=== PATIENT | female | born 1955 | race Caucasian/White ===

== ENCOUNTER 2025-08-09 01:28 | Observation (INO) ==
[2025-08-09 02:53] LABS: Hematocrit (blood only) 44.9 % (37.0-47.0); Hemoglobin 14.8 g/dl (12.0-16.0); Immature Granulocytes # (auto) 0.02 K/uL (0.01-0.20); Immature Granulocytes % (auto) 0.2 %; Mean Corpuscular Hemoglobin 30.5 pg (25.0-34.0); Mean Corpuscular Volume 92.6 fL (80.0-100.0); Platelet Count 220 K/uL (130-400); RDW Standard Deviation 43.0 fL (36.4-46.3); Red Blood Count 4.85 M/uL (4.20-5.40); White Blood Count 9.80 K/ul (4.8-10.8)
[2025-08-09 03:16] LABS: Alanine Aminotransferase 14.0 U/L (7-52); Albumin Globulin Ratio 1.2 (0.9-2); Albumin Level 4.1 gm/dl (3.4-5.0); Alkaline Phosphatase 102.0 U/L (34-104); Anion Gap 9.0 (3-11); Bilirubin,Total 0.4 mg/dl (0.2-1.0); Blood Urea Nitrogen 23.0 mg/dl (6-23); Calcium 9.1 mg/dl (8.6-10.3); Carbon Dioxide 27.0 mmol/L (21-32); Chloride 107.0 mmol/L (98-107); Creatinine Clr Calc Pharmacy 79.2 ml/min; Globulin 3.3 gm/dl (2.5-4.0); Glucose 124.0 mg/dl (70-99(Fasting)); Magnesium 2.1 mg/dl (1.7-2.4); Potassium 3.4 mmol/L (3.5-5.1); Sodium 143.0 mmol/L (136-145); Total Protein 7.4 gm/dl (6.0-8.3)
--- NOTE | 2025-08-09 03:27 | XRay Report ---
EXAM: XR chest 1V portable CLINICAL HISTORY: Dysrhythmia. TECHNIQUE: X-ray images of the chest were obtained in AP projection. COMPARISON: No prior studies are available for comparison. FINDINGS: Pulmonary Parenchyma: The lungs are clear bilaterally. There is no evidence of consolidation, collapse, or focal opacities. No pulmonary nodules are identified. There is no evidence of pleural effusion or pleural thickening. Heart and Mediastinum: The heart size and shape are normal. A prominent aortic knuckle is noted. There is no mediastinal widening or masses. No hilar or mediastinal lymphadenopathy is present. Bony Thorax: The bony thorax appears intact without fractures or deformities. Soft Tissues: The soft tissues overlying the chest wall are unremarkable. IMPRESSION: No acute cardiopulmonary abnormalities are identified. Electronically signed by Pravin Galan 08-09-2025 03:26 AM
[2025-08-09 03:31] LABS: Thyroid Stimulating Hormone 8.021 uIu/ml (0.300-4.500)
[2025-08-09 04:05] LABS: T4 Free Thyroxine 0.84 ng/dl (0.61-1.60)
--- NOTE | 2025-08-09 04:55 | History & Physical Report ---
Date of Service August 09, 2025 Assessment & Plan (1) Atrial fibrillation with rapid ventricular response: Plan: Assessment and plan below following discussion of case with ED provider and reviewing patient history/pertinent normal/abnormal diagnostic test results. New onset atrial fibrillation hx PVCs/bigeminy as per patient Likely from uncontrolled hypertension from joint pain, NSAID Rx contributory Hypokalemia contributory Anxiety contributory Hyperglycemia rule out DM Subclinical hypothyroidism Admit to PCU Initiate beta-all for rate control IV heparin for thromboembolic prophylaxis Replace potassium Anxiolytic as needed Patient counseled regarding adverse effects of NSAIDs on blood pressure. TTE, Cardiology consult re: new onset A-fib Check hemoglobin A1c Recheck TSH next month DVT prophylaxis. IV heparin Full code Text document was generated using [employer] voice recognition software. It may contain grammatical or spelling errors. Kindly contact undersigned for clarification of any documentation item in question. History of Present Illness Chief Complaint: Palpitations Primary Care Provider: Barbara Ford DO History obtained from patient, family, and records. Medical history significant for PVCs/bigeminy as per patient, osteoarthritis, mood disorder. Patient has had intermittent palpitations almost occurring daily even at rest for about 10 years now. Was on metoprolol in the past for history of PVCs/bigeminy. Palpitations short-lived and not bothersome as per patient. Patient discontinued metoprolol years ago secondary to low blood pressure. Patient mentioned palpitations to PCP and outpatient visit last month. Outpatient EKG showed first-degree AV block as per note. Outpatient TTE contemplated. Few months history of worsening left hip and left knee pain. History effusion on outpatient imaging. Patient seen at [facility] 4 days ago. Patient experienced bothersome palpitations after she woke up around 1 AM to go to the bathroom. No chest pain, no cough, no SOB. No headache symptoms. Admits to some family stressors as well as NSAID intake for bothersome left hip and left knee pain. No fever, no chills. Patient noted to be in rapid A-fib upon arrival at the ER. SBP 160s, heart rate 150s. 2 doses of IV Cardizem administered at the ER. Medical History as above Surgical History : Hysterectomy, oophorectomy for right dermoid cyst, hernia repair, dental surgery Family History : Lung cancer, breast cancer, colon cancer, DM, stroke Personal/Social history : Non-smoker, occasional EtOH intake, retired [employer] Allergies Allergy/AdvReac Type Severity Reaction Status Date / Time ephedrine AdvReac Mild . Verified 01/19/10 11:05 No Known Allergies Verified 01/19/10 11:05 Home Medications Medication Instructions Recorded Confirmed Type Miralax 17 g PO DAILY 08/09/25 08/09/25 History ibuprofen 200 mg tablet (Advil) 200 mg PO Q4 PRN Pain 08/09/25 08/09/25 History ketoconazole 2 % topical cream 1 applic topical BID PRN Rash 08/09/25 08/09/25 History Past Med/Surg History Problem List (Updated 08/09/25 @ 09:04 by Lee Tate MD) Atrial fibrillation with rapid ventricular response Social History Smoking Status: Never smoker Second Hand Exposure: No; Do You Dip or Chew Tobacco: No; Tobacco Cessation Education Requested by Patient: No Hx Alcohol Use: Yes Alcohol type: wine Hx Substance Use: No Preferred Language: Mohawk Communication Ability: Effective Pharmacovigilance Specialist Required: No Beliefs That Will Affect Care: None Current Living Situation Comment: life partner Other Information That Helps Us Care for You: No Feels Safe at Home: Yes Safety Concerns: Feels Safe At This Time Assistive Devices: Denture - Upper and Glasses Assistive Devices Comment: partial upper Review of Systems Review of Systems: As per HPI, all other systems reviewed and negative Physical Exam Physical Exam: GENERAL: Comfortable, pleasant, slightly anxious, looks younger than stated age, no respiratory distress SKIN: Normal color, warm HEENT: Bespectacled, pink palpebral conjunctivae, no ptosis, moist buccal mucosa NECK : Supple, no tenderness CHEST : CTA, no tenderness HEART : Irregular, no obvious murmurs ABDOMEN: Some distention, nontender EXTREMITIES : No LE swelling, left hip and left knee tenderness, palpable pulses, no other conspicuous deformities noted NEUROLOGIC : Coherent, no facial asymmetry, no other gross focality Results & Data Results & Data Vital Signs (Past 12 Hours) Vital Signs Temp Pulse Resp BP Pulse Ox O2 Del Method 08/09/25 04:30 105 H 22 121/75 96 08/09/25 04:00 108 H 18 114/83 96 08/09/25 03:32 112 H 20 145/79 H 97 Room Air 08/09/25 03:00 116 H 20 132/79 95 08/09/25 02:30 94 H 24 141/88 H 95 08/09/25 02:16 112 H 24 141/68 H 96 08/09/25 02:16 105 H 08/09/25 01:50 125 H 20 169/91 H 97 08/09/25 01:37 157 H 08/09/25 01:31 36.7 C 160 H 22 144/87 H 98 Room Air Laboratory Results Laboratory Results WBC 9.80 K/ul (4.8-10.8) 08/09/25 01:40 RBC 4.85 M/uL (4.20-5.40) 08/09/25 01:40 Hgb 14.8 g/dl (12.0-16.0) 08/09/25 01:40 Hct 44.9 % (37.0-47.0) 08/09/25 01:40 MCV 92.6 fL (80.0-100.0) 08/09/25 01:40 MCH 30.5 pg (25.0-34.0) 08/09/25 01:40 MCHC 33.0 g/dL (32.0-36.0) 08/09/25 01:40 RDW Std Deviation 43.0 fL (36.4-46.3) 08/09/25 01:40 RDW Coeff of Jose Carlos 12.7 % (11.5-14.5) 08/09/25 01:40 Plt Count 220 K/uL (130-400) 08/09/25 01:40 MPV 10.1 fL (9.4-12.4) 08/09/25 01:40 Immature Gran % (Auto) 0.2 % 08/09/25 01:40 Neut % (Auto) 44.1 % 08/09/25 01:40 Lymph % (Auto) 44.1 % 08/09/25 01:40 Bartholomew % (Auto) 8.7 % 08/09/25 01:40 Eos % (Auto) 2.4 % 08/09/25 01:40 Baso % (Auto) 0.5 % 08/09/25 01:40 Neut # (Auto) 4.32 K/uL (1.40-6.50) 08/09/25 01:40 Lymph # (Auto) 4.32 K/uL (1.20-3.40) H 08/09/25 01:40 Bartholomew # (Auto) 0.85 K/uL (0.11-0.59) H 08/09/25 01:40 Eos # (Auto) 0.24 K/uL (0.00-0.50) 08/09/25 01:40 Baso # (Auto) 0.05 K/uL (0.00-0.20) 08/09/25 01:40 Immature Gran # (Auto) 0.02 K/uL (0.01-0.20) 08/09/25 01:40 Sodium 143 mmol/L (136-145) 08/09/25 01:40 Potassium 3.4 mmol/L (3.5-5.1) L 08/09/25 01:40 Chloride 107 mmol/L (98-107) 08/09/25 01:40 Carbon Dioxide 27 mmol/L (21-32) 08/09/25 01:40 Anion Gap 9 (3-11) 08/09/25 01:40 BUN 23 mg/dl (6-23) 08/09/25 01:40 Creatinine 0.73 mg/dl (0.6-1.2) 08/09/25 01:40 Est Cr Clr Drug Dosing 79.2 ml/min 08/09/25 01:40 eGFR 89.52 08/09/25 01:40 BUN/Creatinine Ratio 31.5 (10-20) H 08/09/25 01:40 Glucose 124 mg/dl (70-99(Fasting)) H 08/09/25 01:40 Calcium 9.1 mg/dl (8.6-10.3) 08/09/25 01:40 Magnesium 2.1 mg/dl (1.7-2.4) 08/09/25 01:40 Total Bilirubin 0.4 mg/dl (0.2-1.0) 08/09/25 01:40 AST 21 U/L (13-39) 08/09/25 01:40 ALT 14 U/L (7-52) 08/09/25 01:40 Alkaline Phosphatase 102 U/L (34-104) 08/09/25 01:40 Troponin I High Sens 6.0 pg/ml (0-14) 08/09/25 01:40 Total Protein 7.4 gm/dl (6.0-8.3) 08/09/25 01:40 Albumin 4.1 gm/dl (3.4-5.0) 08/09/25 01:40 Globulin 3.3 gm/dl (2.5-4.0) 08/09/25 01:40 Albumin/Globulin Ratio 1.2 (0.9-2) 08/09/25 01:40 TSH 8.021 uIu/ml (0.300-4.500) H 08/09/25 01:40 Free T4 0.84 ng/dl (0.61-1.60) 08/09/25 01:40 Impressions Chest X-Ray 08/09/25 02:10 EXAM: XR chest 1V portable CLINICAL HISTORY: Dysrhythmia. TECHNIQUE: X-ray images of the chest were obtained in AP projection. COMPARISON: No prior studies are available for comparison. FINDINGS: Pulmonary Parenchyma: The lungs are clear bilaterally. There is no evidence of consolidation, collapse, or focal opacities. No pulmonary nodules are identified. There is no evidence of pleural effusion or pleural thickening. Heart and Mediastinum: The heart size and shape are normal. A prominent aortic knuckle is noted. There is no mediastinal widening or masses. No hilar or mediastinal lymphadenopathy is present. Bony Thorax: The bony thorax appears intact without fractures or deformities. Soft Tissues: The soft tissues overlying the chest wall are unremarkable. IMPRESSION: No acute cardiopulmonary abnormalities are identified. Electronically signed by Pravin Galan 08-09-2025 03:26 AM Diagnostic Findings EKG as per my interpretation :Rate 150, A-fib, LAD, LAFB, no ischemia
[2025-08-09] MEDS: POTASSIUM CHLORIDE CRTAB 20 MEQ TABCR PO STA (05:05)
[2025-08-09] MEDS: METOPROLOL TARTRATE 25 MG TAB PO STA (05:06)
[2025-08-09 05:13] LABS: Partial Thromboplastin Time 28 Seconds (21-31)
[2025-08-09] MEDS: POTASSIUM CHLORIDE 20 MEQ in LACTATED RINGER'S 1,000 ML IV STA (05:34)
[2025-08-09] MEDS ORDERED: LORazepam 0.5 MG TAB PO PRN (05:53)
[2025-08-09] MEDS ORDERED: ACETAMINOPHEN 500 MG TAB PO PRN (05:53)
[2025-08-09] MEDS ORDERED: PROMETHAZINE 6.25 MG/50.25 ML BAG IV PRN (05:53)
[2025-08-09] MEDS: METOPROLOL TARTRATE 1 MG/ML VIAL IV STA (05:56)
--- NOTE | 2025-08-09 06:13 | Emergency Department Note ---
Impression & Plan Atrial fibrillation with rapid ventricular response Admit to the [facility] ED Provider Note NAME: SEAMUS BRANTLEY AGE: 70 SEX: Female INFORMANT: Patient ED PROVIDER(S): Fiona Raines DO CHIEF COMPLAINT: tachycardia PLAN: Disposition: admit to the [facility] MEDICAL DECISION MAKING: this is a 70-year-old female patient who presents to the emergency department after waking to go to the bathroom. She noted that her heart rate was fast. She denies any chest pain or shortness of breath but states that the tachycardia seems to make her feel tired. Patient has a history of previous PVCs and bigeminy but no previous history of A-fib. Laboratory studies reveal no leukocytosis or anemia. Potassium was slightly low at 3.4. Glucose was 124. Troponin was normal. Free T4 was normal. Patient had a portable chest x-ray which was unremarkable. She received 2 separate doses of IV Cardizem which slowed her rate slightly but she remained in atrial fibrillation and quickly returns to a rapid ventricular response. I discussed the case with the [facility] and they will evaluate for further inpatient care. Care/management discussed with: family services manager and [facility] Triage Nursing notes: reviewed and agree With them. Vital Signs: reviewed and remarkable for tachycardia Additional History obtained from: patient's Differential Diagnosis: cardiac dysrhythmia, electrolyte abnormality, cardiac ischemia, thyroid dysfunction Diagnostics, independently interpreted by me: ECG: Atrial fibrillation with rapid ventricular response at a rate of 155 Cardiac Monitoring: A-fib with RVR at a rate of 140 Imaging studies: portable chest x-ray: No significant cardiomegaly or evidence of congestive heart failure as per my independent interpretation HPI: 70 year old Female arrives for evaluation of tachycardia. resents to the emergency department after waking to go to the bathroom. She noted that her heart rate was fast. She denies any chest pain or shortness of breath but states that the tachycardia seems to make her feel tired. Patient has a history of previous PVCs and bigeminy but no previous history of A-fib. PAST MEDICAL HISTORY: migraines, SOCIAL HISTORY: patient was in her , she does not smoke HOME MEDICATIONS: See list ALLERGIES: see list VITALS: See Below PHYSICAL EXAMINATION: HEENT: Head - normocephalic and atraumatic. Pupils are equal, round, and reactive to light. Extraocular eye muscles are intact, and sclera are anicteric. Nose - moist nasal mucosa without discharge. Mouth - moist buccal mucosa. Oropharynx is nonerythematous and there is no tonsillar exudate or edema noted. Neck: Supple; no JVD, nuchal rigidity, cervical lymphadenopathy, or auscultated bruits. Heart: Tachycardic rate with an irregularly irregular rhythm. There is a normal S1 and S2 with no murmurs, clicks, or gallops appreciated. Lungs: Clear to auscultation bilaterally with no wheezes, rales, or rhonchi. Abdomen: Soft, completely nontender, nondistended, with good bowel sounds. There are no palpable pulsatile masses or hepatosplenomegaly. There is no guarding, rigidity, or rebound noted. Extremities: No evidence of cyanosis, clubbing, or edema. There are easily palpable peripheral pulses. Skin: warm and dry with good turgor and no rashes. Emergency Department treatment: nurse monitoring, IV Cardizem x 2 Emergency Department course: The patient was evaluated in room A-10. A complete history and physical was performed. A twelve-lead EKG was obtained. An order was placed for continuous cardiac monitoring. The patient was in A-fib with RVR at a rate of 140. Blood pressure was stable. Portable chest x-ray was performed. IV lock was initiated and labs are drawn as above. Patient was given a dose of IV Cardizem. This did initially slow the patient's heart rate down to around 94 but she remained in A-fib. patient's heart rate returned to the 120s-130s. She was given a second dose of IV Cardizem. It once again slowed down into the 90s but rebounded again above 120. [facility] care. I have personally spent greater than 50 minutes of critical care time in the direct management of this patient. This includes bedside care, interpretation of diagnostic studies, and testing, discussion with consultants, patient, and family members, and other required patient management activities. This 50 minutes is in excess of all separately billable procedures. Past Med/Surg History Problem List (Updated 08/09/25 @ 23:36 by Fiona Raines DO) Hypokalemia Elevated TSH Atrial fibrillation with rapid ventricular response (Acute) Social History Smoking Status: Never smoker Second Hand Exposure: No; Do You Dip or Chew Tobacco: No; Hx Alcohol Use: Yes Alcohol type: wine Hx Substance Use: No Preferred Language: Armenian Communication Ability: Effective Patroller Required: No Beliefs That Will Affect Care: None Current Living Situation Comment: life partner Feels Safe at Home: Yes Assistive Devices: Denture - Upper and Glasses Allergies Allergies Allergy/AdvReac Type Severity Reaction Status Date / Time ephedrine AdvReac Mild . Verified 01/19/10 11:05 No Known Allergies Verified 01/19/10 11:05 Home Meds Home Medications Medication Instructions Recorded Confirmed Miralax 17 g PO DAILY 08/09/25 08/09/25 ketoconazole 2 % topical cream 1 applic topical BID PRN Rash 08/09/25 08/09/25 Previous Rx's Medication Instructions Recorded apixaban 5 mg tablet (Eliquis) 5 mg PO BID 30 days #60 tabs 08/09/25 metoprolol succinate 25 mg 12.5 mg (1/2 x 25 mg) PO DAILY #30 08/09/25 tablet,extended release 24 hr tabs Results & Data (ED) Vital Signs Vital Signs - 24 hr 08/09/25 01:31 08/09/25 01:37 08/09/25 01:50 Temperature 36.7 C Temperature Source Temporal Artery Scan Pulse Rate 160 H 157 H 125 H Respiratory Rate 22 20 Respiratory Effort / Characteristics Non-Labored Spontaneous Respiratory Depth Normal Respiratory Pattern Regular Blood Pressure 144/87 H 169/91 H Blood Pressure Mean 106 135 Pulse Oximetry 98 97 Oxygen Delivery Method Room Air Sepsis Recent Fever Within 48 Hours No Sepsis New/Unexplained Change in Mental Status No Sepsis Action Taken by Nursing No Action Required 08/09/25 02:16 08/09/25 02:16 08/09/25 02:30 Temperature Temperature Source Pulse Rate 105 H 112 H 94 H Respiratory Rate 24 24 Respiratory Effort / Characteristics Respiratory Depth Respiratory Pattern Blood Pressure 141/68 H 141/88 H Blood Pressure Mean 119 103 Pulse Oximetry 96 95 Oxygen Delivery Method Sepsis Recent Fever Within 48 Hours Sepsis New/Unexplained Change in Mental Status Sepsis Action Taken by Nursing 08/09/25 03:00 08/09/25 03:32 08/09/25 04:00 Temperature Temperature Source Pulse Rate 116 H 112 H 108 H Respiratory Rate 20 20 18 Respiratory Effort / Characteristics Respiratory Depth Respiratory Pattern Blood Pressure 132/79 145/79 H 114/83 Blood Pressure Mean 96 101 87 Pulse Oximetry 95 97 96 Oxygen Delivery Method Room Air Sepsis Recent Fever Within 48 Hours Sepsis New/Unexplained Change in Mental Status Sepsis Action Taken by Nursing 08/09/25 04:30 Temperature Temperature Source Pulse Rate 105 H Respiratory Rate 22 Respiratory Effort / Characteristics Respiratory Depth Respiratory Pattern Blood Pressure 121/75 Blood Pressure Mean 84 Pulse Oximetry 96 Oxygen Delivery Method Sepsis Recent Fever Within 48 Hours Sepsis New/Unexplained Change in Mental Status Sepsis Action Taken by Nursing Laboratory Data 08/09/25 01:40 08/09/25 01:40 Lab Results 08/09/25 Range/Units 01:40 WBC 9.80 (4.8-10.8) K/ul RBC 4.85 (4.20-5.40) M/uL Hgb 14.8 (12.0-16.0) g/dl Hct 44.9 (37.0-47.0) % MCV 92.6 (80.0-100.0) fL MCH 30.5 (25.0-34.0) pg MCHC 33.0 (32.0-36.0) g/dL RDW Std Deviation 43.0 (36.4-46.3) fL RDW Coeff of Jose Carlos 12.7 (11.5-14.5) % Plt Count 220 (130-400) K/uL MPV 10.1 (9.4-12.4) fL Immature Gran % (Auto) 0.2 % Neut % (Auto) 44.1 % Lymph % (Auto) 44.1 % [place] % (Auto) 8.7 % Eos % (Auto) 2.4 % Baso % (Auto) 0.5 % Neut # (Auto) 4.32 (1.40-6.50) K/uL Lymph # (Auto) 4.32 H (1.20-3.40) K/uL [place] # (Auto) 0.85 H (0.11-0.59) K/uL Eos # (Auto) 0.24 (0.00-0.50) K/uL Baso # (Auto) 0.05 (0.00-0.20) K/uL Immature Gran # (Auto) 0.02 (0.01-0.20) K/uL PT 10.2 (9.0-12.0) Seconds INR 1.0 (0.9-1.1) APTT 28 (21-31) Seconds PTT Ratio 1.0 Sodium 143 (136-145) mmol/L Potassium 3.4 L (3.5-5.1) mmol/L Chloride 107 (98-107) mmol/L Carbon Dioxide 27 (21-32) mmol/L Anion Gap 9 (3-11) BUN 23 (6-23) mg/dl Creatinine 0.73 (0.6-1.2) mg/dl Est Cr Clr Drug Dosing 79.2 ml/min eGFR 89.52 BUN/Creatinine Ratio 31.5 H (10-20) Glucose 124 H (70-99(Fasting)) mg/dl Calcium 9.1 (8.6-10.3) mg/dl Magnesium 2.1 (1.7-2.4) mg/dl Total Bilirubin 0.4 (0.2-1.0) mg/dl AST 21 (13-39) U/L ALT 14 (7-52) U/L Alkaline Phosphatase 102 (34-104) U/L Troponin I High Sens 6.0 (0-14) pg/ml Total Protein 7.4 (6.0-8.3) gm/dl Albumin 4.1 (3.4-5.0) gm/dl Globulin 3.3 (2.5-4.0) gm/dl Albumin/Globulin Ratio 1.2 (0.9-2) TSH 8.021 H (0.300-4.500) uIu/ml Free T4 0.84 (0.61-1.60) ng/dl Administered Medications Discontinued Medications Diltiazem HCl (Diltiazem Hcl 5 Mg/Ml 5 Ml Vial) 10 mg IV NOW STA Stop: 08/09/25 02:11 Last Admin: 08/09/25 02:14 Dose: 10 mg Documented By: DYLAN Co-signed By: MELIZA Diltiazem HCl (Diltiazem Hcl 5 Mg/Ml 5 Ml Vial) 10 mg IV NOW STA Stop: 08/09/25 03:29 Last Admin: 08/09/25 03:31 Dose: 10 mg Documented By: MELIZA Co-signed By: DYLAN Heparin Sodium/Dextrose (Heparin Iv Adult Wt-Based Standard *No* Initial Bolus Protocol) 1 each IV ONE STA; Protocol Stop: 08/09/25 05:46 Last Admin: 08/09/25 06:49 Dose: Not Given Documented By: MELIZA Heparin Sodium/Dextrose (Heparin 58139 Unit/500 Ml D5w) Confirm Administered Dose 25,000 units IV .STK-MED ONE Stop: 08/09/25 06:02 Last Admin: 08/09/25 06:50 Dose: Not Given Documented By: MELIZA Potassium Chloride 20 meq/ (Lactated Ringer's) 1,010 mls @ 100 mls/hr IV .Q10H6M STA Stop: 08/09/25 15:01 Last Admin: 08/09/25 05:34 Dose: 100 mls/hr Documented By: MELIZA Heparin Sodium/Dextrose (Heparin 92014 Unit/500 Ml D5w) 25,000 units in 500 mls @ 24 mls/hr IV .[id number] [facility]; Protocol Stop: 09/08/25 05:59 Last Admin: 08/09/25 06:48 Dose: 1,200 units/hr, 24 mls/hr Documented By: MELIZA Co-signed By: jaime Metoprolol Tartrate (Metoprolol Tartrate 25 Mg Tab) 25 mg PO NOW STA Stop: 08/09/25 04:55 Last Admin: 08/09/25 05:06 Dose: 25 mg Documented By: MELIZA Metoprolol Tartrate (Metoprolol Tartrate 1 Mg/Ml Vial) 2.5 mg IV NOW STA Stop: 08/09/25 05:45 Last Admin: 08/09/25 05:56 Dose: 2.5 mg Documented By: MELIZA Polyethylene Glycol (Polyethylene (Miralax) 17 Gm Pack) [facility] [place] [place] Stop: 09/08/25 08:59 Last Admin: 08/09/25 08:02 Dose: Not Given Documented By: RNAndrei Potassium Chloride (Potassium Chloride Crtab 20 Meq Tabcr) 40 meq PO NOW STA Stop: 08/09/25 04:52 Last Admin: 08/09/25 05:05 Dose: 40 meq Documented By: MELIZA Imaging Data Radiologist's Impression: Chest X-Ray 08/09/25 02:10 EXAM: XR chest 1V portable CLINICAL HISTORY: Dysrhythmia. TECHNIQUE: X-ray images of the chest were obtained in AP projection. COMPARISON: No prior studies are available for comparison. FINDINGS: Pulmonary Parenchyma: The lungs are clear bilaterally. There is no evidence of consolidation, collapse, or focal opacities. No pulmonary nodules are identified. There is no evidence of pleural effusion or pleural thickening. Heart and Mediastinum: The heart size and shape are normal. A prominent aortic knuckle is noted. There is no mediastinal widening or masses. No hilar or mediastinal lymphadenopathy is present. Bony Thorax: The bony thorax appears intact without fractures or deformities. Soft Tissues: The soft tissues overlying the chest wall are unremarkable. IMPRESSION: No acute cardiopulmonary abnormalities are identified. Electronically signed by Pravin Galan 08-09-2025 03:26 AM Discharge Plan Visit Data Chief Complaint: Tachycardia Stated Complaint: TACHY ED Provider: Fiona Raines Discharge Problem: Atrial fibrillation with rapid ventricular response Patient Disposition: Admitted As Inpatient Condition: Critical Discharge Instructions Interventions: ED Discharge Assessment Last Done: 08/09/25 07:02
[2025-08-09] MEDS: HEPARIN 25000 UNIT/500 ML D5W 25,000 UNITS/500 ML BAG IV SCH (06:48)
[2025-08-09] MEDS: Heparin IV Adult Wt-Based Standard *NO* INITIAL Bolus Protocol IV STA (06:49)
[2025-08-09] MEDS: HEPARIN 25000 UNIT/500 ML D5W IV ONE (06:50)
[2025-08-09 06:58] LABS: INR 1.0 (0.9-1.1); Prothrombin Time 10.2 Seconds (9.0-12.0)
[2025-08-09] MEDS: POLYETHYLENE (MIRALAX) 17 GM PACK PO SCH (08:02)
--- NOTE | 2025-08-09 11:08 | XCELERA ---
[id number]
--- NOTE | 2025-08-09 11:35 | Discharge Summary ---
Discharge Summary Date of Service August 09, 2025 Principal Dx & Hospital Course #1 = Principal Diagnosis (1) Atrial fibrillation with rapid ventricular response: per admitting service notes with addendum: Assessment and plan below following discussion of case with ED provider and reviewing patient history/pertinent normal/abnormal diagnostic test results. New onset atrial fibrillation hx PVCs/bigeminy as per patient -- given Diltiazem and Metoprolol during admission -- spontaneously converted to sinus rhythm -- echo: LV systolic function normal, EF 55 to 60%, nondilated cardiac chambers, no significant valvular pathology -- Evaluated by cardiology service Cleared for discharge Discharge recommendations: Metoprolol succinate 12.5 mg p.o. daily Eliquis 5 mg p.o. twice daily Follow-up with cardiology clinic in 2 weeks, clinic will be calling the patient for the appointment schedule Hyperglycemia rule out DM -- blood glucose at 1am 124 -- a1c as outpatient Subclinical hypothyroidism -- TSH 8.0, free T40.84 Repeat thyroid function test as an outpatient Discharge to home PCP follow-up in 1 week Cardiology follow-up in 2 weeks Notes For Next Care Provider Medication Changes From Visit Metoprolol succinate 12.5 mg p.o. daily Eliquis 5 mg p.o. twice daily Admission HPI Per Admitting Provider History obtained from patient, family, and records. Medical history significant for PVCs/bigeminy as per patient, osteoarthritis, mood disorder. Patient has had intermittent palpitations almost occurring daily even at rest for about 10 years now. Was on metoprolol in the past for history of PVCs/bigeminy. Palpitations short-lived and not bothersome as per patient. Patient discontinued metoprolol years ago secondary to low blood pressure. Patient mentioned palpitations to PCP and outpatient visit last month. Outpatient EKG showed first-degree AV block as per note. Outpatient TTE contemplated. Few months history of worsening left hip and left knee pain. History effusion on outpatient imaging. Patient seen at [facility] 4 days ago. Patient experienced bothersome palpitations after she woke up around 1 AM to go to the bathroom. No chest pain, no cough, no SOB. No headache symptoms. Admits to some family stressors as well as NSAID intake for bothersome left hip and left knee pain. No fever, no chills. Patient noted to be in rapid A-fib upon arrival at the ER. SBP 160s, heart rate 150s. 2 doses of IV Cardizem administered at the ER. 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 Admission Exam Per Admitting Provider GENERAL: Comfortable, pleasant, slightly anxious, looks younger than stated age, no respiratory distress SKIN: Normal color, warm HEENT: Bespectacled, pink palpebral conjunctivae, no ptosis, moist buccal mucosa NECK : Supple, no tenderness CHEST : CTA, no tenderness HEART : Irregular, no obvious murmurs ABDOMEN: Some distention, nontender EXTREMITIES : No LE swelling, left hip and left knee tenderness, palpable pulses, no other conspicuous deformities noted NEUROLOGIC : Coherent, no facial asymmetry, no other gross focality Discharge Exam General- oriented x 3, not in distress, speaks in sentences with no effort or accessory muscle use Eyes- anicteric Neck- no JVD Lungs- clear breath sounds bilaterally, no rales/wheezes Heart- normal rate, regular rhythm; no murmurs Abdomen- normal bowel sounds, nondistended, soft, nontender Extremities- no pretibial edema, no calf tenderness Neuro- alert, oriented x 3; no gross focal neurologic deficits Skin- warm & dry Updated Medication List Medication Instructions Recorded Confirmed Type Miralax 17 g PO DAILY 08/09/25 08/09/25 History apixaban 5 mg tablet (Eliquis) 5 mg PO BID 30 days #60 tabs 08/09/25 Rx ibuprofen 200 mg tablet (Advil) 200 mg PO Q4 PRN Pain 08/09/25 08/09/25 History ketoconazole 2 % topical cream 1 applic topical BID PRN Rash 08/09/25 08/09/25 History metoprolol succinate 25 mg 12.5 mg (1/2 x 25 mg) PO DAILY #30 08/09/25 Rx tablet,extended release 24 hr tabs Hospital Stay Data Consultations 08/09/25 04:25 ED Decision to Admit Stat 08/09/25 05:59 Consult Cardiology Routine Procedures Performed EXAM: XR chest 1V portable CLINICAL HISTORY: Dysrhythmia. TECHNIQUE: X-ray images of the chest were obtained in AP projection. COMPARISON: No prior studies are available for comparison. FINDINGS: Pulmonary Parenchyma: The lungs are clear bilaterally. There is no evidence of consolidation, collapse, or focal opacities. No pulmonary nodules are identified. There is no evidence of pleural effusion or pleural thickening. Heart and Mediastinum: The heart size and shape are normal. A prominent aortic knuckle is noted. There is no mediastinal widening or masses. No hilar or mediastinal lymphadenopathy is present. Bony Thorax: The bony thorax appears intact without fractures or deformities. Soft Tissues: The soft tissues overlying the chest wall are unremarkable. IMPRESSION: No acute cardiopulmonary abnormalities are identified. Electronically signed by Pravin Galan 08-09-2025 03:26 AM Dictated: 08/09/25 0229 Transcribed: Pending Results Patient Have Any Pending Studies at Discharge: No Discharge Instructions Given to Patient (Per Discharging Provider) PLEASE REFER TO YOUR NEW MEDICATION LIST AND FOLLOW INSTRUCTIONS CAREFULLY. YOUR NEW MEDICATIONS INCLUDE: Metoprolol- for heart rate control, atrial fibrillation Eliquis- blood thinner for stroke prevention Do not take medications under the class of NSAIDs including Ibuprofen, etc. as they can increase your bleeding risk. PLEASE CALL YOUR PRIMARY CARE PHYSICIAN OR RETURN TO THE ER IF WITH WORSENING OF SYMPTOMS, INCLUDING chest pain, palpitations, shortness of breath, etc FOLLOW UP WITH PRIMARY CARE PHYSICIAN IN 1 WEEK. [facility] WILL BE CALLING YOU FOR A FOLLOW UP APPOINTMENT SCHEDULE. Total Time Total Time Spent Total Time Spent (In Minutes): 50 minutes
--- NOTE | 2025-08-09 13:14 | Cardiology Consultation ---
<Statement entered by Tiffany Taylor, DO - 08/09/25 21:33> I have reviewed the advanced practitioner's documentation and agree with the plan of care. I accept the responsibility for the associated risk. pt presented to ER due to palpitations keeping her from sleeping where she was found to have new onset pAF with RVR. She did convert to SR this morning. her echo was while in AF but overall looked good recommend AC with eliquis and rate control for now with lopressor recommend zio patch upon discharge to assess for recurrent pAF burden ?possible ischemic work up as an out pt? she is ok for discharge home today from a cardiac perspective she will need f/u in our office upon discharge Date of Consultation August 09, 2025 Assessment & Plan (1) Atrial fibrillation with rapid ventricular response: (2) Elevated TSH: (3) Hypokalemia: Plan Patient is a 70-year-old female admitted to [facility] with newly diagnosed atrial fibrillation RVR. HS troponin negative Low potassium and elevated TSH noted on arrival. Patient converted to normal sinus rhythm with IV diltiazem and metoprolol. Pathophysiology and treatment options of atrial fibrillation discussed with the patient including stroke risk. [id number] score of 2 (Age, sex) Recommend treatment wit Eliquis 5 mg BID with metoprolol succinate 25 mg -1/2 tab daily. Patient hesitant to take higher dose to due intermittent low BP. Supplement potassium. Recheck as outpatient Recheck TSH as outpatient. F/U with PCP Echo unremarkable with normal LVEF, normal chamber sizes and no significant valvular disease. No further cardiac testing warranted Patient stable for discharge Will arrange 2-4 week cardio f/u at [facility]. Consider future outpatient stress test Case discussed with Dr. Taylor I spent a total of 45 minutes on the date of service in preparation, delivery, and documentation of the care provided to this patient, excluding any time spent in the performance of separately billed services. Anita Lewis PA-C Department of Cardiology, [facility] This chart was completed in part utilizing Speech Voice Recognition Software. Grammatical errors, random word insertions, pronoun errors, and incomplete sentences are an occasional consequence of this system due to software limitations, ambient noise, and hardware issues. Any formal questions or concerns about the content, text, or information contained within the body of this dictation should be directly addressed to the provider for clarification. History of Present Illness Reason for Consultation: Afib RVR Requesting Physician: Ed hospitalist Attending Physician: Dr. Taylor History of Present Illness Patient is a 70-year-old female who presented to [facility] last evening with complaints of palpitations starting around midnight and inability to sleep. Upon arrival to the emergency department, she was found to have atrial fibrillation with rapid ventricular response. New diagnosis. No history of atrial arrhythmias. She does admit to having PVCs in the past. She admits to drinking 1 to 2 glasses of wine last evening.The day participating in a local [employer] and walked more than usual. She felt she may have been dehydrated. No prior cardiovascular history. She was started on IV metoprolol and IV diltiazem drip. She was started on IV heparin for stroke prophylaxis. This morning around 9:10 AM, patient converted from atrial fibrillation to normal sinus rhythm. Potassium was low at 3.4 and supplemented. TSH was elevated At 8.0. No prior history of thyroid disorder. At time of consult, patient feeling well. Anxious for discharge as she has a grandchild sporting event later today that she wishes to attend. She denies recent chest pain or unusual shortness of breath. No dizziness or lightheadedness. No palpitations.No orthopnea, PND, lower extremity edema. No fever, cough, chills. Allergies Allergy/AdvReac Type Severity Reaction Status Date / Time ephedrine AdvReac Mild . Verified 01/19/10 11:05 No Known Allergies Verified 01/19/10 11:05 Home Medications Medication Instructions Recorded Confirmed Type Miralax 17 g PO DAILY 08/09/25 08/09/25 History apixaban 5 mg tablet (Eliquis) 5 mg PO BID 30 days #60 tabs 08/09/25 Rx ketoconazole 2 % topical cream 1 applic topical BID PRN Rash 08/09/25 08/09/25 History metoprolol succinate 25 mg 12.5 mg (1/2 x 25 mg) PO DAILY #30 08/09/25 Rx tablet,extended release 24 hr tabs Patient History Social History Smoking Status: Never smoker Second Hand Exposure: No; Do You Dip or Chew Tobacco: No; Tobacco Cessation Education Requested by Patient: No Hx Alcohol Use: Yes Alcohol type: wine Hx Substance Use: No Preferred Language: [place] Communication Ability: Effective Insurance Verifier Required: No Beliefs That Will Affect Care: None Current Living Situation Comment: life partner Other Information That Helps Us Care for You: No Feels Safe at Home: Yes Safety Concerns: Feels Safe At This Time Assistive Devices: Denture - Upper and Glasses Assistive Devices Comment: partial upper Review of Systems Review of Systems: All systems reviewed & are unremarkable except as noted in HPI & below Physical Exam Constitutional: well developed; no acute distress Neck: trachea midline, no thyromegaly Respiratory: normal respiratory effort, lungs clear to auscultation Cardiovascular: RRR, no murmur, no edema Gastrointestinal (Abdomen): normal bowel sounds, soft, nontender, no hepatosplenomegaly Neurologic: PERRL, EOMI, accommodation nl, no face palsy, no dysarthria Results & Data Vital Signs (Past 12 Hours) Vital Signs Temp Pulse Pulse Resp BP BP Pulse Ox 08/09/25 12:10 36.7 C 101 H 16 120/75 96 08/09/25 09:10 94 H 08/09/25 07:56 08/09/25 07:45 08/09/25 07:43 94 H 08/09/25 07:30 36.7 C 101 H 16 120/75 96 08/09/25 06:51 108 H 20 119/45 L 95 08/09/25 06:31 99 H 20 115/90 96 08/09/25 06:18 101 H 08/09/25 06:11 100 H 08/09/25 06:00 104 H 20 134/101 H 96 08/09/25 05:56 112 H 147/89 H 08/09/25 05:31 120 H 20 168/105 H 97 08/09/25 04:30 105 H 22 121/75 96 08/09/25 04:00 108 H 18 114/83 96 08/09/25 03:32 112 H 20 145/79 H 97 08/09/25 03:00 116 H 20 132/79 95 08/09/25 02:30 94 H 24 141/88 H 95 08/09/25 02:16 112 H 24 141/68 H 96 08/09/25 02:16 105 H 08/09/25 01:50 125 H 20 169/91 H 97 08/09/25 01:37 157 H 08/09/25 01:31 36.7 C 160 H 22 144/87 H 98 Pulse Ox O2 Del Method O2 Del Method 08/09/25 12:10 08/09/25 09:10 08/09/25 07:56 96 Room Air 08/09/25 07:45 Room Air 08/09/25 07:43 08/09/25 07:30 Room Air 08/09/25 06:51 Room Air 08/09/25 06:31 08/09/25 06:18 08/09/25 06:11 08/09/25 06:00 08/09/25 05:56 08/09/25 05:31 08/09/25 04:30 08/09/25 04:00 08/09/25 03:32 Room Air 08/09/25 03:00 08/09/25 02:30 08/09/25 02:16 08/09/25 02:16 08/09/25 01:50 08/09/25 01:37 08/09/25 01:31 Room Air Laboratory Results Cardiac Enzymes 08/09/25 Range/Units 01:40 AST 21 (13-39) U/L Troponin I High Sens 6.0 (0-14) pg/ml Coagulation 08/09/25 Range/Units 01:40 PT 10.2 (9.0-12.0) Seconds APTT 28 (21-31) Seconds CBC 08/09/25 Range/Units 01:40 WBC 9.80 (4.8-10.8) K/ul RBC 4.85 (4.20-5.40) M/uL Hgb 14.8 (12.0-16.0) g/dl Hct 44.9 (37.0-47.0) % Plt Count 220 (130-400) K/uL Neut # (Auto) 4.32 (1.40-6.50) K/uL Lymph # (Auto) 4.32 H (1.20-3.40) K/uL [place] # (Auto) 0.85 H (0.11-0.59) K/uL Eos # (Auto) 0.24 (0.00-0.50) K/uL Baso # (Auto) 0.05 (0.00-0.20) K/uL Comprehensive Metabolic Panel 08/09/25 Range/Units 01:40 Sodium 143 (136-145) mmol/L Potassium 3.4 L (3.5-5.1) mmol/L Chloride 107 (98-107) mmol/L Carbon Dioxide 27 (21-32) mmol/L BUN 23 (6-23) mg/dl Creatinine 0.73 (0.6-1.2) mg/dl Glucose 124 H (70-99(Fasting)) mg/dl Calcium 9.1 (8.6-10.3) mg/dl AST 21 (13-39) U/L ALT 14 (7-52) U/L Alkaline Phosphatase 102 (34-104) U/L Total Protein 7.4 (6.0-8.3) gm/dl Albumin 4.1 (3.4-5.0) gm/dl Intake and Output 08/08/25 08/09/25 08/09/25 22:59 06:59 14:59 Other: Weight 77.7 kg 78.3 kg Weight Measurement Method [facility] Weight 08/10/25 06:59 Weight 78.3 kg Diagnostic Findings Telemetry reviewed: Currently normal sinus rhythm in the 80s. Around 9:10 AM she converted from A- fib to normal sinus rhythm. Echocardiogram report reviewed from this morning: Normal LV systolic function with ejection fraction 55 to 60%. Nondilated cardiac chambers. No significant valvular pathology. EKG reviewed from arrival 1019 at 1:30 AM: Patient with rapid ventricular response At 155 bpm Repeat EKG this morning at 938: Normal sinus rhythm with first-degree AV block possible left atrial enlargement Possible old anterior infarct, previously reported No acute ischemic changes. Chest X-Ray 08/09/25 02:10 EXAM: XR chest 1V portable CLINICAL HISTORY: Dysrhythmia. TECHNIQUE: X-ray images of the chest were obtained in AP projection. COMPARISON: No prior studies are available for comparison. FINDINGS: Pulmonary Parenchyma: The lungs are clear bilaterally. There is no evidence of consolidation, collapse, or focal opacities. No pulmonary nodules are identified. There is no evidence of pleural effusion or pleural thickening. Heart and Mediastinum: The heart size and shape are normal. A prominent aortic knuckle is noted. There is no mediastinal widening or masses. No hilar or mediastinal lymphadenopathy is present. Bony Thorax: The bony thorax appears intact without fractures or deformities. Soft Tissues: The soft tissues overlying the chest wall are unremarkable. IMPRESSION: No acute cardiopulmonary abnormalities are identified. Electronically signed by Pravin Galan 08-09-2025 03:26 AM Medications Administered Current Inpatient Medications Acetaminophen (Acetaminophen 500 Mg Tab) 500 mg PO Q6H PRN PRN Reason: fever/pain Stop: 09/08/25 05:52 Potassium Chloride 20 meq/ (Lactated Ringer's) 1,010 mls @ 100 mls/hr IV .[id number] STA Stop: 08/09/25 15:01 Last Admin: 08/09/25 05:34 Dose: 100 mls/hr Heparin Sodium/Dextrose (Heparin 07878 Unit/500 Ml D5w) 25,000 units in 500 mls @ 24 mls/hr IV .[id number] [facility]; Protocol Stop: 09/08/25 05:59 Last Admin: 08/09/25 06:48 Dose: 1,200 units/hr, 24 mls/hr Promethazine HCl (Phenergan) 6.25 mg in 50.25 mls @ 201 mls/hr IV Q6H PRN PRN Reason: Nausea And Vomiting Stop: 09/08/25 05:52 Lorazepam (Lorazepam 0.5 Mg Tab) 0.5 mg PO TID PRN PRN Reason: Anxiety Stop: 09/08/25 05:52 Metoprolol Tartrate (Metoprolol Tartrate 25 Mg Tab) 25 mg PO BID [facility] Stop: 09/08/25 20:59 Oxycodone HCl (Oxycodone Hcl Ir 5 Mg Tab (Immediate Release)) 5 mg PO Q4H PRN PRN Reason: Pain Stop: 08/23/25 05:52 Polyethylene Glycol (Polyethylene (Miralax) 17 Gm Pack) 17 gm PO QAM [facility] Stop: 09/08/25 08:59 Last Admin: 08/09/25 08:02 Dose: Not Given PG Care Time/CCT Total # of Minutes Spent Total Time Spent with Patient: Total time spent is greater than 50% in coordination of care (as documented) at patient's floor/unit and/or counseling patient: 45 minutes Coding Level of Care Code 63960 INT INP/OBS CARE 3/75MIN Diagnoses Atrial fibrillation with rapid ventricular response I48.91 Elevated TSH R79.89 Hypokalemia E87.6
[2025-08-09 13:22] LABS: ANTI-Xa, UFH(UnfractionatedHep 0.34 IU/ml (0.3-0.7)
--- NOTE | 2025-08-09 19:32 | Electrocardiogram Report ---
Test Reason : Blood Pressure : */* mmHG Vent. Rate : 92 BPM Atrial Rate : 92 BPM P-R Int : 212 ms QRS Dur : 82 ms QT Int : 378 ms P-R-T Axes : 59 -24 37 degrees QTcB Int : 467 ms Sinus rhythm with 1st degree A-V block Possible Left atrial enlargement Low voltage QRS Cannot rule out Anterior infarct (cited on or before 12-Jul-2002) Abnormal ECG When compared with ECG of 09-Aug-2025 01:37, (unconfirmed) Sinus rhythm has replaced Atrial fibrillation Vent. rate has decreased by [address] elevation has replaced ST depression in Lateral leads Confirmed by Cade Wright ([id number]) on 08/09/2025 7:32:04 PM Referred By: REFERRED SELF Confirmed By: Cade Wright
--- NOTE | 2025-08-09 19:45 | Electrocardiogram Report ---
Test Reason : Blood Pressure : */* mmHG Vent. Rate : 155 BPM Atrial Rate : * BPM P-R Int : * ms QRS Dur : 82 ms QT Int : 292 ms P-R-T Axes : * -7 10 degrees QTcB Int : 469 ms Atrial fibrillation with rapid ventricular response Cannot rule out Anterior infarct (cited on or before 12-Jul-2002) Abnormal ECG When compared with ECG of 12-Jul-2002 18:05, Atrial fibrillation has replaced Sinus rhythm Vent. rate has increased by [address] now depressed in Lateral leads Confirmed by Cade Wright ([id number]) on 08/09/2025 7:44:47 PM Referred By: REFERRED SELF Confirmed By: Cade Wright
[2025-08-09] MEDS ORDERED: METOPROLOL TARTRATE 25 MG TAB PO SCH (21:00)
== END 2025-08-09 13:36 | disposition home or self-care (01) | DRG 310 ==
LOC: ED 01:28 → 2S 04:56 → INTOOBSV 04:56 → 2S 07:02